=== PATIENT | female | born 1975 | race Caucasian/White ===

== ENCOUNTER 2016-07-02 08:14 | Emergency (ER) | payer OTHER ==
[~2016-07-02] VITALS: Ht 160 cm; Wt 118.8 kg
== END 2016-07-02 09:55 | disposition short-term general hospital (02) ==
LOC: ER 08:14
DX: S06.0X0A Concussion without loss of consciousness, initial encounter (principal); S00.33XA Contusion of nose, initial encounter; S00.12XA Contusion of left eyelid and periocular area, initial encounter; S00.11XA Contusion of right eyelid and periocular area, initial encounter; W22.8XXA Striking against or struck by other objects, initial encounter; Y92.512 Supermarket, store or market as the place of occurrence of the external cause; Y99.0 Civilian activity done for income or pay; I10 Essential (primary) hypertension; Z79.899 Other long term (current) drug therapy
CPT/HCPCS: J1885

== ENCOUNTER → 2016-08-11 | Outpatient (CLI) | payer BC | END | disposition short-term general hospital (02) | LOC: CLPAIN 08:52 | DX: M47.897 Other spondylosis, lumbosacral region (principal) ==

== ENCOUNTER 2016-08-25 13:02 | Day surgery (SDC) | payer BC | END 2016-08-25 15:14 | disposition short-term general hospital (02) | LOC: SURGOP 13:02 | PROC: 3E0R33Z Introduction of Anti-inflammatory into Spinal Canal, Percutaneous Approach (ICD-10-PCS; principal; 2016-08-25) | PROC: 3E0R3BZ Introduction of Anesthetic Agent into Spinal Canal, Percutaneous Approach (ICD-10-PCS; 2016-08-25) | DX: M47.816 Spondylosis without myelopathy or radiculopathy, lumbar region (principal); I10 Essential (primary) hypertension; E11.9 Type 2 diabetes mellitus without complications; J45.909 Unspecified asthma, uncomplicated; G43.909 Migraine, unspecified, not intractable, without status migrainosus; F32.9 Major depressive disorder, single episode, unspecified; Z87.442 Personal history of urinary calculi | CPT/HCPCS: J1040 ==

== ENCOUNTER → 2016-09-08 | Outpatient (CLI) | payer BC | END | disposition short-term general hospital (02) | LOC: CLPAIN 09:18 | DX: M47.897 Other spondylosis, lumbosacral region (principal) ==

== ENCOUNTER 2016-09-22 12:22 | Day surgery (SDC) | payer BC | END 2016-09-22 14:01 | disposition short-term general hospital (02) | LOC: SURGOP 12:22 | PROC: 3E0R33Z Introduction of Anti-inflammatory into Spinal Canal, Percutaneous Approach (ICD-10-PCS; principal; 2016-09-22) | PROC: 3E0R3BZ Introduction of Anesthetic Agent into Spinal Canal, Percutaneous Approach (ICD-10-PCS; 2016-09-22) | DX: M47.816 Spondylosis without myelopathy or radiculopathy, lumbar region (principal); E11.9 Type 2 diabetes mellitus without complications; I10 Essential (primary) hypertension; F32.9 Major depressive disorder, single episode, unspecified ==